=== PATIENT | female | born 1995 | race American Indian/Alaskan Native ===

== ENCOUNTER 2019-04-05 20:42 | Emergency (ER) | payer SELFPAY ==
[2019-04-05] MEDS ORDERED: TORADOL IM ONE (22:01)
[2019-04-05] MEDS ORDERED: DECADRON IV ONE (22:06)
--- NOTE | 2019-04-05 22:08 | Event Note ---
ED Screening Note Date of service: 04/05/19 Time: 22:04 ED Screening Note: 23 y/o female comes in for 3 day history of sorethroat fever and chill and spitting. Not able to swallow. This initial assessment/diagnostic orders/clinical plan/treatment(s) is/are subject to change based on patients health status, clinical progression and re- assessment by fellow clinical providers in the ED. Further treatment and workup at subsequent clinical providers discretion. Patient/guardian urged not to elope from the ED as their condition may be serious if not clinically assessed and managed. Initial orders include:
[2019-04-05 23:21] LABS: Basophils # (Auto) 0.1 K/mm3 (0.0-0.1); Basophils % (Auto) 0.4 % (0.0-1.8); Eosinophils % (Auto) 0.1 % (0.0-4.3); Hematocrit 36.7 % (30.3-42.9); Hemoglobin 12.3 gm/dl (10.1-14.3); Lymphocytes # (Auto) 2.2 K/mm3 (1.2-5.4); Lymphocytes % (Auto) 13.1 % (13.4-35.0); Mean Corpuscular HGB Conc 33 % (30-34); Mean Corpuscular Volume 74 fl (79-97); Monocytes # (Auto) 1.8 K/mm3 (0.0-0.8); Monocytes % (Auto) 10.6 % (0.0-7.3); Platelet Count 215 K/mm3 (140-440); Red Blood Count 4.93 M/mm3 (3.65-5.03)
[2019-04-05] MEDS ORDERED: CLEOCIN 900 MG/50 mL 900 MG/50 ML BAG IV ONE (23:31)
[2019-04-05] MEDS ORDERED: LIDOCAINE VISCOUS 2% PO ONE (23:32)
[2019-04-05] MEDS ORDERED: NACL 0.9% 1000 ML 1,000 ML IV ONE (23:32)
[2019-04-05] MEDS ORDERED: TYLENOL PO ONE (23:33)
--- NOTE | 2019-04-06 00:28 | Emergency Department Report ---
ED General Adult HPI - General Chief complaint: Sore Throat Stated complaint: SORE THROAT/BERNICE Time Seen by Provider: 04/05/19 22:00 Source: patient Mode of arrival: Ambulatory Limitations: No Limitations - History of Present Illness Initial comments: Patient is a 23-year-old -Cypriot female who presents to the ED with complaint of acute onset persistent severe sore throat or dysphagia, nasal and sinus congestion and dry cough for the last 3 days. Patient also complains of severe diffuse body aches and pains, nausea, headache, intermittent fever and chills for 3 days. The patient denies dizziness, chest pain, shortness of breath, abdominal pain, dysuria, urinary frequency and urgency, change in vision, neck pain, diarrhea or vomiting. Patient states that she has not been able to eat anything because of pain in her throat. MD Complaint: sore throat, nasal and sinus congestion, fever, chills, cough -: Sudden, days(s) (3) Location: mouth Radiation: non-radiation Severity scale (0 -10): 6 Quality: aching, sharp, constant Consistency: constant Improves with: none Worsens with: eating Associated Symptoms: denies other symptoms, cough, fever/chills, headaches, loss of appetite, malaise. denies: confusion, chest pain, diaphoresis, nausea/vomiting, rash, seizure, shortness of breath, syncope, weakness, other Treatments Prior to Arrival: none - Related Data Previous Rx's Medication Instructions Recorded Last Taken Type Clindamycin [Clindamycin CAP] 300 mg PO Q6HR #80 capsule 04/06/19 Unknown Rx Ibuprofen [Motrin] 800 mg PO Q8HR PRN #24 tablet 04/06/19 Unknown Rx Lidocaine Viscous 2% 10 ml PO Q6H PRN #120 ml 04/06/19 Unknown Rx Ondansetron [Zofran Odt] 4 mg PO Q6HR PRN #15 tab.rapdis 04/06/19 Unknown Rx methylPREDNISolone [Medrol 4MG 4 mg PO DAILY #21 tab.ds.pk 04/06/19 Unknown Rx DOSEPAK (21 tabs)] Allergies Allergy/AdvReac Type Severity Reaction Status Date / Time No Known Allergies Allergy Unverified 04/05/19 21:15 ED Review of Systems ROS: Stated complaint: SORE THROAT/BERNICE Other details as noted in HPI Constitutional: chills, fever, malaise Eyes: denies: eye pain, eye discharge, vision change ENT: throat pain, congestion. denies: ear pain, dental pain, hearing loss Respiratory: cough. denies: shortness of breath, wheezing Cardiovascular: denies: chest pain, palpitations, dyspnea on exertion, edema, paroxysmal nocturnal dyspnea Endocrine: no symptoms reported Gastrointestinal: nausea. denies: abdominal pain, vomiting, diarrhea, hematemesis, melena, hematochezia Genitourinary: denies: urgency, dysuria, discharge Musculoskeletal: back pain, arthralgia, myalgia. denies: joint swelling Skin: denies: rash, lesions Neurological: headache. denies: weakness, paresthesias Psychiatric: denies: anxiety, depression Hematological/Lymphatic: denies: easy bleeding, easy bruising ED Past Medical Hx - Past Medical History Previous Medical History?: No - Surgical History Past Surgical History?: No - Social History Smoking Status: Current Every Day Smoker Substance Use Type: Alcohol, Marijuana - Medications Home Medications: Home Medications Medication Instructions Recorded Confirmed Last Taken Type Clindamycin [Clindamycin CAP] 300 mg PO Q6HR #80 capsule 04/06/19 Unknown Rx Ibuprofen [Motrin] 800 mg PO Q8HR PRN #24 tablet 04/06/19 Unknown Rx Lidocaine Viscous 2% 10 ml PO Q6H PRN #120 ml 04/06/19 Unknown Rx Ondansetron [Zofran Odt] 4 mg PO Q6HR PRN #15 tab.rapdis 04/06/19 Unknown Rx methylPREDNISolone [Medrol 4MG 4 mg PO DAILY #21 tab.ds.pk 04/06/19 Unknown Rx DOSEPAK (21 tabs)] ED Physical Exam - General Limitations: No Limitations General appearance: alert, in no apparent distress - Head Head exam: Present: atraumatic, normocephalic, normal inspection - Eye Eye exam: Present: normal appearance, PERRL, EOMI. Absent: scleral icterus, conjunctival injection, nystagmus Pupils: Present: normal accommodation - ENT ENT exam: Present: mucous membranes moist (grossly congested nasal passages), TM's normal bilaterally, normal external ear exam, other (Swollen tonsils with erythema; erythematous oropharyngeal areas with exudates) - Neck Neck exam: Present: normal inspection, full ROM, lymphadenopathy. Absent: tenderness, meningismus, thyromegaly - Respiratory Respiratory exam: Present: normal lung sounds bilaterally. Absent: respiratory distress, wheezes, rales, rhonchi, stridor, chest wall tenderness, accessory muscle use, decreased breath sounds, prolonged expiratory - Cardiovascular Cardiovascular Exam: Present: normal rhythm, tachycardia, normal heart sounds. Absent: systolic murmur, diastolic murmur, rubs, gallop - GI/Abdominal GI/Abdominal exam: Present: soft, normal bowel sounds. Absent: tenderness, gu arding, rebound, rigid, hyperactive bowel sounds, hypoactive bowel sounds, organomegaly, bruit, pulsatile mass, hernia - Rectal Rectal exam: Present: deferred - Extremities Exam Extremities exam: Present: normal inspection, full ROM, normal capillary refill - Back Exam Back exam: Present: normal inspection, full ROM. Absent: tenderness, CVA tenderness (R), CVA tenderness (L), muscle spasm, paraspinal tenderness, vertebral tenderness - Neurological Exam Neurological exam: Present: alert, oriented X3, CN II-XII intact, normal gait, reflexes normal - Psychiatric Psychiatric exam: Present: normal affect, normal mood, anxious - Skin Skin exam: Present: warm, dry, intact, normal color. Absent: rash ED Course Vital Signs 04/05/19 04/06/19 22:00 03:45 Temperature 100.3 F H 97.8 F Pulse Rate 121 H 76 Respiratory 20 16 Rate Blood Pressure 138/74 Blood Pressure 119/73 [Right] O2 Sat by Pulse 99 98 Oximetry - Reevaluation(s) Reevaluation #1: 04/06/19 00:33 This is a 23-year-old female who presented to the ED with calming of acute onset sore throat with dysphagia, fever and chills. Sinus congestion and cough for 3 days. In the ED, patient is alert and oriented 3, tachycardic and febrile and in no acute distress. Labs were drawn including blood cultures, urinalysis, chest x-ray was also ordered as well as soft tissue neck CT scan with contrast. The patient was treated for pain, also given Decadron IV, viscous lidocaine and started on clindamycin 900 mg IV 1 with normal saline IV bolus solution. On reevaluation, patient feeling better, eating and drinking in the room in no distress. Chest x-ray shows no acute cardiopulmonary abnormalities. Soft tissue neck CT scan with contrast shows bilateral cervical tonsillar lymphoid hyperplasia consistent with tonsillitis. There is no evidence of abscess. There is however reactive adenopathy present. On reevaluation, patient vital signs are stable, and patient was discharged home on antibiotics and pain medication as well as steroid Dosepak and advised follow-up with her primary care physician in 7-10 days for reevaluation. Patient is advised to return to the ED immediately if symptoms get worse. 04/06/19 05:43 04/06/19 05:45 ED Medical Decision Making - Lab Data Result diagrams: 04/05/19 22:51 04/06/19 00:06 - Radiology Data Radiology results: report reviewed, image reviewed Chest x-ray shows no acute cardiopulmonary abnormalities Soft tissue neck CT scan w/contrast- shows bilateral cervical tonsillar lymphoid hyperplasia consistent with tonsillitis. There is no evidence of abscess. There is however reactive adenopathy present. - Medical Decision Making This is a 23-year-old female who presented to the ED with calming of acute onset sore throat with dysphagia, fever and chills. Sinus congestion and cough for 3 days. In the ED, patient is alert and oriented 3, tachycardic and febrile and in no acute distress. Labs were drawn including blood cultures, urinalysis, chest x-ray was also ordered as well as soft tissue neck CT scan with contrast. The patient was treated for pain, also given Decadron IV, viscous lidocaine and started on clindamycin 900 mg IV 1 with normal saline IV bolus solution. On reevaluation, patient feeling better, eating and drinking in the room in no distress. Chest x-ray shows no acute cardiopulmonary abnormalities. Soft tissue neck CT scan with contrast shows bilateral cervical tonsillar lymphoid hyperplasia consistent with tonsillitis. There is no evidence of abscess. There is however reactive adenopathy present. On reevaluation, patient vital signs are stable, and patient was discharged home on antibiotics and pain medication as well as steroid Dosepak and advised follow-up with her primary care physician in 7-10 days for reevaluation. Patient is advised to return to the ED immediately if symptoms get worse. - Differential Diagnosis Strep Pharyngitis; Peritonsillar abscess; Acute URI; Penumonia, Bronchitis Critical care attestation.: If time is entered above; I have spent that time in minutes in the direct care of this critically ill patient, excluding procedure time. ED Disposition Clinical Impression: Acute bacterial pharyngitis, Fever with chills, Acute upper respiratory infection, Acute bacterial tonsillitis Disposition: TO HOME OR SELFCARE Is pt being admited?: No Does the pt Need Aspirin: No Condition: Stable Instructions: Pharyngitis (ED), Fever in Adults (ED), Tonsillitis (ED) Additional Instructions: Take medications with food, drink plenty of fluids and follow up with your Primary care Physician in 7-10 days for reevaluation. Return to the ED immediately if symptoms get worse. Prescriptions: Clindamycin [Clindamycin CAP] 300 mg PO Q6HR #80 capsule Lidocaine Viscous 2% 10 ml PO Q6H PRN #120 ml PRN Reason: Pain , Severe (7-10) methylPREDNISolone [Medrol 4MG DOSEPAK (21 tabs)] 4 mg PO DAILY #21 tab.ds.pk Ibuprofen [Motrin] 800 mg PO Q8HR PRN #24 tablet PRN Reason: Pain , Severe (7-10) Ondansetron [Zofran Odt] 4 mg PO Q6HR PRN #15 tab.rapdis PRN Reason: Nausea Referrals: [facility] [Outside] - 3-5 Days Time of Disposition: 05:50 Print Language: YEMENI
--- NOTE | 2019-04-06 00:58 | XRay Report ---
CHEST 2 VIEWS INDICATION / CLINICAL INFORMATION: cough. COMPARISON: None available. FINDINGS: SUPPORT DEVICES: None. HEART / MEDIASTINUM: No significant abnormality. LUNGS / PLEURA: No significant pulmonary or pleural abnormality. No pneumothorax. ADDITIONAL FINDINGS: No significant additional findings. IMPRESSION: 1. No acute findings. Signer Name: Maged Linder MD Signed: 04/06/2019 12:54 AM Workstation Name: [id number]
[2019-04-06 01:44] LABS: Alanine Aminotransferase 12 units/L (7-56); Albumin 3.9 g/dL (3.9-5); BUN/Creatinine Ratio 11; Blood Urea Nitrogen 12 mg/dL (7-17); Calcium 9.1 mg/dL (8.4-10.2); Hemolysis Index 20
[2019-04-06 02:38] LABS: Bilirubin,Urine Negative (Negative); Blood,Urine Negative (Negative); Color,Urine Yellow (Yellow)
[2019-04-06 03:46] VITALS: BP 119/73
--- NOTE | 2019-04-06 05:06 | Cat Scan Report ---
CT NECK 04/06/2019 HISTORY: Difficulty swallowing. FINDINGS: Contrast enhanced CT images of the soft tissues of the neck were obtained. Images are evalu ated in the axial, coronal, and sagittal planes. There is bilateral tonsillar lymphoid hyperplasia, resulting in narrowing of the upper posterior nasa l pharynx. There is no evidence of fluid collection or abscess. Prominent bilateral reactive cervical adenopathy is present. There is no evidence of fluid collection or mass. IMPRESSION: Bilateral cervical tonsillar lymphoid hyperplasia, consistent with tonsillitis. No eviden ce of abscess. Reactive adenopathy. All CT scans at this location are performed using dose reduction to ALARA by means of automated expos ure control. Signer Name: Maurizio Wyatt MD Signed: 04/06/2019 5:02 AM Workstation Name: [id number]
== END 2019-04-06 06:41 | disposition home or self-care (01) ==
LOC: ED 20:42
DX: J03.80 Acute tonsillitis due to other specified organisms (principal); B96.89 Other specified bacterial agents as the cause of diseases classified elsewhere; F17.200 Nicotine dependence, unspecified, uncomplicated; F12.10 Cannabis abuse, uncomplicated; Z79.899 Other long term (current) drug therapy
CPT/HCPCS: 36415; 70491; 71046; 80053; 81001; 82140; 84703; 85025; 87040; 87116; 87430; 96365; 96372; 96375; 99284; J1100; J1885; J7030; Q9967

== ENCOUNTER 2020-01-06 21:41 | Emergency (ER) | payer SELFPAY ==
[2020-01-06 22:39] LABS: Basophils # (Auto) 0.1 K/mm3 (0.0-0.1); Basophils % (Auto) 0.6 % (0.0-1.8); Eosinophils # (Auto) 0.4 K/mm3 (0.0-0.4); Hematocrit 35.4 % (30.3-42.9); Hemoglobin 11.5 gm/dl (10.1-14.3); Lymphocytes # (Auto) 3.1 K/mm3 (1.2-5.4); Lymphocytes % (Auto) 32.4 % (13.4-35.0); Mean Corpuscular HGB Conc 32 % (30-34); Mean Corpuscular Volume 73 fl (79-97); Monocytes # (Auto) 0.6 K/mm3 (0.0-0.8); Monocytes % (Auto) 5.9 % (0.0-7.3); Platelet Count 272 K/mm3 (140-440); Red Blood Count 4.87 M/mm3 (3.65-5.03); Red Cell Distribution Width 14.7 % (13.2-15.2)
[2020-01-06 23:07] LABS: Alanine Aminotransferase 14 units/L (7-56); Albumin 3.6 g/dL (3.9-5); BUN/Creatinine Ratio 14; Blood Urea Nitrogen 13 mg/dL (7-17); Calcium 9.1 mg/dL (8.4-10.2); Hemolysis Index 4
[2020-01-07] MEDS ORDERED: ONDANSETRON 4 MG/2 ML INJ IV ONE (00:29)
[2020-01-07] MEDS ORDERED: FAMOTIDINE 20 MG/2 ML INJ IV ONE (00:29)
[2020-01-07] MEDS ORDERED: KETOROLAC 30 MG/1 ML INJ IV ONE (00:29)
--- NOTE | 2020-01-07 00:55 | Emergency Department Report ---
ED Abdominal Pain HPI - General Chief Complaint: Abdominal Pain Stated Complaint: ABDOMINAL PAIN Source: patient Mode of arrival: Ambulatory Limitations: No Limitations - History of Present Illness Initial Comments: Patient is a 24-year-old -Iranian female with no past medical history who presents to the ED with complaint of acute onset persistent low back pain that radiates to the right flank and suprapubic area for the last 2 weeks, worse in the last 2 days. Patient also complains of dyspareunia, and nausea. Patient states that she has been taking [id number] pain medication with no relief. Patient denies fever, chills, dizziness, syncope, vaginal bleeding, vaginal discharge, dysuria, urinary frequency and urgency, cough, vomiting, diarrhea, traumatic injury, heavy lifting, fall, headache or vaginal discharge. MD Complaint: abdominal pain, other (right flank pain, dyspareunia) -: Sudden, week(s) (2) Location: RLQ, suprapubic, R flank Radiation: RLQ, suprapubic, R flank Migration to: no migration Severity: severe Severity scale (0 -10): 8 Quality: cramping, aching, sharp Consistency: constant Improves With: nothing Worsens With: nothing Associated Symptoms: denies other symptoms, nausea. denies: vomiting, diarrhea, fever, chills, constipation, dysuria, hematemesis, hematochezia, melena, hematuria, anorexia, syncope, other - Related Data LMP Date: 12/31/19 Previous Rx's Medication Instructions Recorded Last Taken Type Clindamycin [Clindamycin CAP] 300 mg PO Q6HR #80 capsule 04/06/19 Unknown Rx Ibuprofen [Motrin] 800 mg PO Q8HR PRN #24 tablet 04/06/19 Unknown Rx Lidocaine Viscous 2% 10 ml PO Q6H PRN #120 ml 04/06/19 Unknown Rx Ondansetron [Zofran Odt] 4 mg PO Q6HR PRN #15 tab.rapdis 04/06/19 Unknown Rx methylPREDNISolone [Medrol 4MG 4 mg PO DAILY #21 tab.ds.pk 04/06/19 Unknown Rx DOSEPAK (21 tabs)] Cyclobenzaprine [Flexeril] 10 mg PO Q8H PRN #21 tablet 01/07/20 Unknown Rx Doxycycline Hyclate 100 mg PO Q12H #20 tablet. 01/07/20 Unknown Rx Naproxen 500 mg PO Q12H PRN #24 tablet 01/07/20 Unknown Rx metroNIDAZOLE [Flagyl] 500 mg PO Q12HR #14 tab 01/07/20 Unknown Rx Allergies Allergy/AdvReac Type Severity Reaction Status Date / Time No Known Allergies Allergy Unverified 04/05/19 21:15 ED Review of Systems ROS: Stated complaint: ABDOMINAL PAIN Other details as noted in HPI Constitutional: denies: chills, fever Eyes: denies: eye pain, eye discharge, vision change ENT: denies: ear pain, throat pain Respiratory: denies: cough, shortness of breath, wheezing Cardiovascular: denies: chest pain, palpitations Endocrine: no symptoms reported Gastrointestinal: abdominal pain, nausea. denies: diarrhea Genitourinary: dyspareunia. denies: urgency, dysuria, discharge Musculoskeletal: denies: back pain, joint swelling, arthralgia Skin: denies: rash, lesions Neurological: denies: headache, weakness, paresthesias Psychiatric: denies: anxiety, depression Hematological/Lymphatic: denies: easy bleeding, easy bruising ED Past Medical Hx - Past Medical History Previous Medical History?: No - Surgical History Past Surgical History?: No - Social History Smoking Status: Current Every Day Smoker Substance Use Type: Marijuana - Medications Home Medications: Home Medications Medication Instructions Recorded Confirmed Last Taken Type Clindamycin [Clindamycin CAP] 300 mg PO Q6HR #80 capsule 04/06/19 Unknown Rx Ibuprofen [Motrin] 800 mg PO Q8HR PRN #24 tablet 04/06/19 Unknown Rx Lidocaine Viscous 2% 10 ml PO Q6H PRN #120 ml 04/06/19 Unknown Rx Ondansetron [Zofran Odt] 4 mg PO Q6HR PRN #15 tab.rapdis 04/06/19 Unknown Rx methylPREDNISolone [Medrol 4MG 4 mg PO DAILY #21 tab.ds.pk 04/06/19 Unknown Rx DOSEPAK (21 tabs)] Cyclobenzaprine [Flexeril] 10 mg PO Q8H PRN #21 tablet 01/07/20 Unknown Rx Doxycycline Hyclate 100 mg PO Q12H #20 tablet. 01/07/20 Unknown Rx Naproxen 500 mg PO Q12H PRN #24 tablet 01/07/20 Unknown Rx metroNIDAZOLE [Flagyl] 500 mg PO Q12HR #14 tab 01/07/20 Unknown Rx ED Physical Exam - General Limitations: No Limitations General appearance: alert, in no apparent distress - Head Head exam: Present: atraumatic, normocephalic, normal inspection - Eye Eye exam: Present: normal appearance, PERRL, EOMI Pupils: Present: normal accommodation - ENT ENT exam: Present: normal exam, normal orophraynx, mucous membranes moist, TM's normal bilaterally, normal external ear exam - Neck Neck exam: Present: normal inspection, full ROM - Respiratory Respiratory exam: Present: normal lung sounds bilaterally. Absent: respiratory distress, wheezes, rales, rhonchi, chest wall tenderness, accessory muscle use, decreased breath sounds, prolonged expiratory - Cardiovascular Cardiovascular Exam: Present: regular rate, normal rhythm, normal heart sounds. Absent: systolic murmur, diastolic murmur, rubs, gallop - GI/Abdominal GI/Abdominal exam: Present: soft, tenderness (Palpable right flank, RLQ and suprapubic tenderness), normal bowel sounds. Absent: guarding, rebound, hy peractive bowel sounds, organomegaly - Bi-manual exam: Present: other (Pelvic exam deferred, patient choice) - Extremities Exam Extremities exam: Present: normal inspection, full ROM, normal capillary refill - Back Exam Back exam: Present: normal inspection, full ROM. Absent: tenderness, CVA tenderness (R), muscle spasm, paraspinal tenderness, vertebral tenderness - Neurological Exam Neurological exam: Present: alert, oriented X3, CN II-XII intact, normal gait, reflexes normal - Psychiatric Psychiatric exam: Present: normal affect, normal mood - Skin Skin exam: Present: warm, dry, intact, normal color. Absent: rash ED Course Vital Signs 01/06/20 22:00 Temperature 97.9 F Pulse Rate 100 H Respiratory 18 Rate Blood Pressure 148/87 O2 Sat by Pulse 99 Oximetry ED Medical Decision Making - Lab Data Result diagrams: 01/06/20 22:10 01/06/20 22:10 - Medical Decision Making This is a 24-year-old -Iranian female with no past medical history who presents to the ED with complaint of acute onset persistent low back pain that radiates to the right flank and suprapubic area for the last 2 weeks, worse in the last 2 days. Patient also complains of dyspareunia, and nausea. Patient states that she has been taking [id number] pain medication with no relief. In the ED, patient is alert and oriented x3 and is not in any distress. Patient sleeping comfortably in the room in no distress. Patient was treated for pain in the ED and lab test results were reviewed and are all nonactionable. Wet prep however reveals Gardnerella vaginalis. Patient was discharged home on pain medications and Flagyl as well as muscle relaxants and was advised to follow-up with her primary care physician in 7 to 10 days for reevaluation. Patient was advised to return to the ED immediately if symptoms get worse. - Differential Diagnosis Muscle spasm; UTI; STD; Ovarian cyst; Muscle strain Critical care attestation.: If time is entered above; I have spent that time in minutes in the direct care of this critically ill patient, excluding procedure time. ED Disposition Clinical Impression: Spasm of muscle of lower back, Bacterial vaginosis Abdominal pain Qualifiers: Abdominal location: lower abdomen, unspecified Qualified Code(s): R10.30 - Lower abdominal pain, unspecified Disposition: DC-01 TO HOME OR SELFCARE Is pt being admited?: No Does the pt Need Aspirin: No Condition: Stable Instructions: Abdominal Pain (ED), Bacterial Vaginosis (ED), Muscle Spasm (ED) Additional Instructions: All all lab test results are unremarkable. Therefore take medications with food as advised, drink plenty fluids and follow-up with your primary care physician in 7 to 10 days for reevaluation. Return to the ED immediately if symptoms get worse. Prescriptions: Doxycycline Hyclate 100 mg PO Q12H #20 tablet. metroNIDAZOLE [Flagyl] 500 mg PO Q12HR #14 tab Cyclobenzaprine [Flexeril] 10 mg PO Q8H PRN #21 tablet PRN Reason: Muscle Spasm Naproxen 500 mg PO Q12H PRN #24 tablet PRN Reason: Pain , Severe (7-10) Referrals: [facility] [Provider Group] - 7-10 days Forms: STI Treatment and Prevention Time of Disposition: 02:40 Print Language: ITALIAN
[2020-01-07 02:17] LABS: Bilirubin,Urine NEG (Negative); Blood,Urine NEG (Negative); Color,Urine Yellow (Yellow); Mucus,Urine FEW /HPF; Protein,Urine <15 mg/dL mg/dL (Negative); Urobilinogen,Urine < 2.0 mg/dL (<2.0)
[2020-01-07 03:42] VITALS: BP 147/80
== END 2020-01-07 03:40 | disposition home or self-care (01) ==
LOC: ED 21:41
DX: B37.3 Candidiasis of vulva and vagina (principal); R10.30 Lower abdominal pain, unspecified; M62.830 Muscle spasm of back
CPT/HCPCS: 36415; 80053; 81001; 84702; 85025; 87210; 96374; 96375; 99283; J1885; J2405